=== PATIENT | female | born 1965 | race Caucasian/White ===

== ENCOUNTER 2017-03-18 21:12 | Emergency (ER) | payer OTHER ==
[~2017-03-18] VITALS: Ht 162.6 cm; Wt 57.0 kg
[~2017-03-18 21:12] MED LIST: BIOT2500 PO; COCO1000 PO; EVEN10003 PO; NICO2LOZ PO; REST30CA PO
[2017-03-18 21:14] VITALS: BP 128/76; PULSE 95; RESP 16; TEMP 98; O2SAT 97
[2017-03-18 22:25] VITALS: BP 127/56; PULSE 91; RESP 20; O2SAT 99
[2017-03-18] MEDS ORDERED: ASPIRIN 81 MG CHEW TAB PO ONE (22:45)
[2017-03-18] MEDS: METOPROLOL TARTRATE 5 MG/5 ML VIAL IVS SCH ×3 (22:45→22:55)
[2017-03-18] MEDS ORDERED: LORazepam 2 MG/ML VIAL IV PUSH SCH (22:45)
[2017-03-18] MEDS ORDERED: SODIUM CHLORIDE 0.9% FLUSH 10 ML FLUSH IVF PRN (22:45)
[2017-03-18] MEDS ORDERED: ZOLP12.5 PO (22:59)
[2017-03-18] MEDS ORDERED: ALPR.25 PO (23:00)
--- NOTE | 2017-03-18 23:00 | RADHPO ---
EXAM DATE/TIME: 03/18/2017 22:52 [place] COMPARISON: No previous studies available for comparison. INDICATIONS : Patient has been short of breath and she states she feels she has a rapid heart rate. MEDICAL HISTORY : None. SURGICAL HISTORY : None. ENCOUNTER: Initial ACUITY: 2 weeks PAIN SCORE: 0/10 LOCATION: Bilateral chest FINDINGS: A single view of the chest demonstrates the lungs to be symmetrically aerated without evidence of mas s, infiltrate or effusion. The cardiomediastinal contours are unremarkable. Osseous structures are intact. CONCLUSION: No acute disease. Aaron Dawson MD on March 18, 2017 at 22:58 Board Certified Radiologist. This report was verified electronically.
[2017-03-18 23:01] LABS: AUTOMATED NEUTROPHIL # 2.9 TH/MM3 (1.8-7.7); BASOPHIL # 0.1 TH/MM3 (0-0.2); EOSINOPHIL # 0.3 TH/MM3 (0-0.4); HEMATOCRIT 37.5 % (35.0-46.0); HEMO FLAGS DIFF FINAL; LYMPH % 37.5 % (9.0-44.0); LYMPHOCYTE # 2.4 TH/MM3 (1.0-4.8); MEAN CELL VOLUME 86.1 FL (80.0-100.0); MEAN CORPUSCULAR HEMOGLOBIN 29.6 PG (27.0-34.0); MEAN CORPUSCULAR HGB CONC 34.4 % (32.0-36.0); NEUT % 44.5 % (16.0-70.0); PLATELET COUNT 328 TH/MM3 (150-450); RED BLOOD COUNT 4.36 MIL/MM3 (4.00-5.30); RED CELL DISTRIBUTION WIDTH 11.9 % (11.6-17.2); WHITE BLOOD COUNT 6.5 TH/MM3 (4.0-11.0)
--- NOTE | 2017-03-18 23:07 | PD ---
HPI . Palpitations Chief Complaint: General Weakness Time Seen by Provider: 22:26 Travel History International Travel<30 days: No Contact w/Intl Traveler<30days: No Traveled to known affect area: No History of Present Illness HPI Patient presents with chief complaint of palpitations. Onset was months ago. She saw her PMD for it and was given a prescription for Xanax. She does not like the way the Xanax makes her feel so only takes it infrequently. Her palpitations are associated with weakness, loose stools and insomnia. She states she was recently seen by her front counter clerk who checked her thyroid. She states that she subsequently received a call from her front counter clerk telling her that she had hyperthyroidism. She states that her front counter clerk once her to see an parliamentary archivist. Patient reports that she has been trying to get into see an parliamentary archivist for 8 months without success because of insurance. She is very concerned about waiting any longer to see someone. She is not currently on any medication for the hyperthyroidism. She has not noted any exacerbating or relieving factors. Symptoms are described as severe. PFSH Past Medical History Arthritis: Yes Cancer: No Cardiovascular Problems: No Diabetes: No Diminished Hearing: No Endocrine: No Gastrointestinal Disorders: Yes (HEARTBURN CONTROLLED WITH DIET) Genitourinary: No Hepatitis: No Hiatal Hernia: Yes Immune Disorder: No Musculoskeletal: Yes (PINCHED NERVED CERVICAL AREA, PAIN THROUGHOUT BACK) Neurologic: No Psychiatric: No Respiratory: No Thyroid Disease: No Ulcer: Yes Tetanus Vaccination: > 5 Years Influenza Vaccination: Yes ?: Unknown Menopausal: No : 2 Para: 1 Miscarriage: 1 Past Surgical History Abdominal Surgery: No Body Medical Devices: NONE Section: Yes Ear Surgery: No Eye Surgery: No Genitourinary Surgery: No Gynecologic Surgery: Yes (OVARIAN CYST REMOVAL,C SECTION) Oral Surgery: Yes (T&A) Thoracic Surgery: Yes (BREAST AUGMENTATION, IMPLANTS REMOVED) Tonsillectomy: Yes Other Surgery: Yes Social History Alcohol Use: Yes (Occasionally ) Tobacco Use: No Substance Use: No Allergies-Medications (Allergen,Severity, Reaction): Coded Allergies: No Known Allergies (Unverified , 03/18/17) Reported Meds & Prescriptions Reported Meds & Active Scripts Active Reported Xanax (Alprazolam) 0.25 Mg Tab 0.25 Mg PO Q8H PRN Zolpidem ER (Zolpidem Tartrate) 12.5 Mg Tab 12.5 Mg PO HS PRN Review of Systems Except as stated in HPI: all other systems reviewed are Neg General / Constitutional: Positive: Weight Loss Cardiovascular: Positive: Palpitations Gastrointestinal: Positive: Diarrhea Musculoskeletal: Positive: Arthralgias (right shoulder) Neurologic: Positive: Weakness Physical Exam Narrative GENERAL: Awake and alert. She appears very anxious. SKIN: Warm and dry. HEAD: Atraumatic. Normocephalic. EYES: Pupils equal and round. Extraocular movements are intact. ENT: No nasal bleeding or discharge. Mucous membranes pink and moist. NECK: Trachea midline. Neck is supple. CARDIOVASCULAR: Regular rate and rhythm. Heart rate is around 90. Sinus rhythm on the monitor. Heart sounds are normal. RESPIRATORY: No accessory muscle use. Lungs are clear with full air movement throughout. GASTROINTESTINAL: Abdomen soft, non-tender, nondistended. MUSCULOSKELETAL: No obvious deformities. No edema. NEUROLOGICAL: Awake and alert. No obvious cranial nerve deficits. Motor grossly within normal limits. Normal speech. PSYCHIATRIC: Appropriate mood and affect; insight and judgment normal. Data Data Last Documented VS Vital Signs Date Time Temp Pulse Resp B/P Pulse Ox O2 Delivery O2 Flow Rate FiO2 03/18/17 22:40 20 99 Room Air 03/18/17 22:25 91 127/56 03/18/17 21:14 98.0 Orders Electrocardiogram (03/18/17 22:38) Ckmb (Isoenzyme) Profile (03/18/17 22:38) Complete Blood Count With Diff (03/18/17 22:38) Comprehensive Metabolic Panel (03/18/17 22:38) Magnesium (Mg) (03/18/17 22:38) Troponin I (03/18/17 22:38) Chest, Single Ap (03/18/17 22:38) Ecg Monitoring (03/18/17 22:38) Iv Access Insert/Monitor (03/18/17 22:38) Oximetry (03/18/17 22:38) Aspirin Chew (Aspirin Chew) (03/18/17 22:45) Sodium Chloride 0.9% Flush (Ns Flush) (03/18/17 22:45) Metoprolol Tartrate Inj (Lopressor Inj) (03/18/17 22:45) Thyroid Stimulating Hormone (03/18/17 22:38) Lorazepam Inj (Ativan Inj) (03/18/17 22:45) Labs Laboratory Tests Test 03/18/17 22:35 White Blood Count 6.5 TH/MM3 Red Blood Count 4.36 MIL/MM3 Hemoglobin 12.9 GM/DL Hematocrit 37.5 % Mean Corpuscular Volume 86.1 FL Mean Corpuscular Hemoglobin 29.6 PG Mean Corpuscular Hemoglobin 34.4 % Concent Red Cell Distribution Width 11.9 % Platelet Count 328 TH/MM3 Mean Platelet Volume 7.3 FL Neutrophils (%) (Auto) 44.5 % Lymphocytes (%) (Auto) 37.5 % Monocytes (%) (Auto) 13.0 % Eosinophils (%) (Auto) 4.0 % Basophils (%) (Auto) 1.0 % Neutrophils # (Auto) 2.9 TH/MM3 Lymphocytes # (Auto) 2.4 TH/MM3 Monocytes # (Auto) 0.8 TH/MM3 Eosinophils # (Auto) 0.3 TH/MM3 Basophils # (Auto) 0.1 TH/MM3 CBC Comment DIFF FINAL Differential Comment Sodium Level 144 MEQ/L Potassium Level 3.6 MEQ/L Chloride Level 107 MEQ/L Carbon Dioxide Level 28.6 MEQ/L Anion Gap 8 MEQ/L Blood Urea Nitrogen 16 MG/DL Creatinine 0.57 MG/DL Estimat Glomerular Filtration 111 ML/MIN Rate Random Glucose 102 MG/DL Calcium Level 9.7 MG/DL Magnesium Level 2.0 MG/DL Total Bilirubin 0.2 MG/DL Aspartate Amino Transf 21 U/L (AST/SGOT) Alanine Aminotransferase 42 U/L (ALT/SGPT) Alkaline Phosphatase 66 U/L Total Creatine Kinase 45 U/L Troponin I LESS THAN 0.02 NG/ML Total Protein 6.7 GM/DL Albumin 3.4 GM/DL Thyroid Stimulating Hormone LESS THAN 3rd Gen 0.005 uIU/ML MDM Medical Decision Making Medical Screen Exam Complete: Yes Emergency Medical Condition: Yes Interpretation(s) EKG shows a sinus rhythm with ventricular rate of 85. No ST segment elevation or depression. Differential Diagnosis Differential diagnosis of palpitations includes but is not limited to anxiety, SVT, aVF with RVR, VT, sinus tachycardia, PVCs Narrative Course Patient presents with an 8 month history of palpitations. She reports that she was recently diagnosed with hyperthyroidism per her front counter clerk. She has not yet been able to see her primary care physician for an parliamentary archivist to start treatment for hyperthyroidism. She is very concerned about delaying treatment any further. Last Impressions Chest X-Ray 03/18/178 Signed Impressions: Service Date/Time: March 22:52 - CONCLUSION: No acute disease. Aaron Dawson MD CBC & BMP Diagram 03/18/17 22:35 Cardiac enzymes are negative. TSH is < 0.005. This patient is hyperthyroid. I have queried up-to-date which recommends initiation of the beta meron pending further evaluation. I will start her on atenolol. Diagnosis Primary Impression: Palpitations Additional Impression: Hyperthyroidism Referrals: Primary Care Physician next week as scheduled Patient Instructions: General Instructions, Hyperthyroidism (DC) Med/Other Pt SpecificInfo: Prescription(s) given Scripts Atenolol 25 Mg Tab25 Mg PO DAILY #30 TAB Prov:Migdalia Nicolas MD 03/18/17 Disposition: 01 DISCHARGE HOME Condition: Stable Migdalia Nicolas MD March 18, 2017 23:07
[2017-03-18 23:09] LABS: CHLORIDE 107 MEQ/L (98-107); POTASSIUM 3.6 MEQ/L (3.5-5.1); SODIUM (NA) 144 MEQ/L (136-145)
[2017-03-18 23:13] LABS: ANION GAP 8 MEQ/L (5-15); BICARBONATE 28.6 MEQ/L (21.0-32.0); BLOOD UREA NITROGEN 16 MG/DL (7-18)
[2017-03-18 23:15] VITALS: BP 116/70; PULSE 90; RESP 18; O2SAT 97
[2017-03-18 23:16] LABS: ALT (GPT) 42 U/L (10-53); AST (GOT) 21 U/L (15-37); GLOMERULAR FILTRATION RATE 111 ML/MIN (>89)
[2017-03-18 23:18] LABS: TOTAL BILIRUBIN ADULT 0.2 MG/DL (0.2-1.0)
[2017-03-18 23:19] LABS: ALKALINE PHOSPHATASE 66 U/L (45-117)
[2017-03-18 23:20] LABS: CREATINE KINASE 45 U/L (26-192)
[2017-03-18] MEDS ORDERED: ATEN25TA PO (23:38)
[2017-03-18 23:45] VITALS: BP 117/64; PULSE 93; RESP 20; O2SAT 98
[2017-03-18] MEDS ORDERED: ATENOLOL 25 MG TAB PO ONE (23:45)
[2017-03-19 00:18] VITALS: BP 110/52
--- NOTE | 2017-03-19 08:22 | EKG ---
Date Performed: 03/18/2017 Time Performed: 22:41:52 PTAGE: 51 years EKG: --- Warning: Data quality may affect interpretation --- Sinus rhythm . Lead(s) unsuitable for analysis: V1 V2 Normal ECG based on available leads NO PREVIOUS TRACING DOCTOR: Lazaro Steel Interpretating Date/Time 03/19/2017 08:20:44
== END 2017-03-19 00:23 | disposition home or self-care (01) ==
LOC: PHED 21:12
DX: R00.2 Palpitations (principal); E05.90 Thyrotoxicosis, unspecified without thyrotoxic crisis or storm; R19.7 Diarrhea, unspecified; R53.1 Weakness; M25.511 Pain in right shoulder; Z79.899 Other long term (current) drug therapy
CPT/HCPCS: 71010; 80053; 82550; 83735; 84443; 84484; 85025; 93005; 96374; 99285; J2060